=== PATIENT | male | born 1950 | race Caucasian/White ===

== ENCOUNTER 2019-10-02 08:02 | Inpatient (IN) | payer BC ==
[~2019-10-02] VITALS: Ht 177.8 cm; Wt 112.5 kg
[2019-10-02] VITALS (7 sets, daily range): BP systolic 123–157; BP diastolic 71–83
--- OUTSIDE RECORDS SUMMARY | 2019-10-02 08:05 | XMS REPORT ---
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 Allergies, Adverse Reactions, Alerts This patient has no known allergies or adverse reactions. Medications This patient has no known medications. Encounters Start Date/Time End Date/Time Encounter Type Admission Type Attending Clinicians [facility] [place] Facility Care Department Encounter ID 2019-03-28 13:54:34 Outpatient [facility] [id number] 2019-05-31 19:46:00 2019-05-31 19:46:00 Outpatient [facility] [id number]
[2019-10-02] MEDS ORDERED: AZITHROMYCIN 500MG/NS 250 ML 250 ML IV STA (08:31)
[2019-10-02] MEDS ORDERED: ACETAMINOPHEN 325 MG TAB PO STA (08:31)
[2019-10-02] MEDS ORDERED: SODIUM CHLORIDE 0.9% 1000ML 1,000 ML IV STA (08:31)
[2019-10-02] MEDS ORDERED: CEFTRIAXONE SOD 1 GM/NS 50 ML 50 ML IV ONE (08:45)
[2019-10-02 09:00] LABS: BASOPHILS % 0.5 % (0.0-1.0); EOSINOPHILS # (AUTO) 0.1 (0.0-0.4); EOSINOPHILS % 0.9 % (0.0-6.0); HEMATOCRIT 41.3 % (38.2-49.6); HEMOGLOBIN 14.3 g/dL (14.0-18.0); LYMPHOCYTES # (AUTO) 0.9 (1.0-3.2); LYMPHOCYTES % 16.8 % (18.0-39.1); MEAN CORPUSCULAR HEMOGLOBIN 29.1 pg (28-32); MEAN CORPUSCULAR HGB CONC 34.6 g/dL (31-35); MEAN CORPUSCULAR VOLUME 83.9 fL (81-99); MONOCYTES # (AUTO) 0.6 (0.2-0.8); MONOCYTES % 10.6 % (4.4-11.3); NEUTROPHILS % 70.8 % (38.7-80.0); PLATELET COUNT 194 x10e3/uL (140-360); RED BLOOD COUNT 4.92 x10e6/uL (4.3-5.7); RED CELL DISTRIBUTION WIDTH 12.4 % (11.7-14.4)
[2019-10-02 09:06] LABS: BILIRUBIN,URINE NEGATIVE (NEGATIVE); CLARITY,URINE CLEAR (CLEAR); COLOR,URINE YELLOW (YELLOW); LEUKOCYTE ESTERASE ,URINE NEGATIVE (NEGATIVE); NITRITE,URINE NEGATIVE (NEGATIVE); PROTEIN,URINE DIPSTICK 2+ (NEGATIVE); URINE UROBILINOGEN 1 mg/dL (0.2 - 1)
[2019-10-02 09:12] LABS: KETONES,URINE 3+ (NEGATIVE)
[2019-10-02 09:23] LABS: ALANINE AMINOTRANSFERASE 19 IU/L (0-55); ALBUMIN 3.3 g/dL (3.5-5.0); ALBUMIN/GLOBULIN RATIO 0.9 (0.8-2.0); ALKALINE PHOSPHATASE 44 IU/L (40-150); ANION GAP 13.2 mmol/L (8-16); BLOOD UREA NITROGEN 13 mg/dL (7-26); BUN/CREATININE RATIO 18 (6-25); CALCIUM 9.3 mg/dL (8.4-10.2); CARBON DIOXIDE 29 mmol/L (22-29); CHLORIDE 93 mmol/L (98-107); CREATININE, SERUM 0.71 mg/dL (0.72-1.25); EST GLOMERULAR FILTRATION RATE > 60 ML/MIN (60-); GLUCOSE 143 mg/dL (74-118); POTASSIUM 3.2 mmol/L (3.5-5.1); SODIUM 132 mmol/L (136-145)
--- NOTE | 2019-10-02 09:23 | Diagnostic Imaging Report ---
EXAMINATION: CHEST 2 VIEWS INDICATION: Sepsis COMPARISON: None FINDINGS: LINES/TUBES:EKG leads overlie the chest. LUNGS:The lungs are moderately inflated. There are patchy airspace opacities at the left lower lobe and lingula. No pulmonary edema. PLEURA:No pleural effusion or pneumothorax. MEDIASTINUM:The cardiomediastinal silhouette appears normal in size and shape. BONES/SOFT TISSUES:No acute osseous injury. Cervical spine fusion hardware. ABDOMEN:No free air under the diaphragm. IMPRESSION: Patchy opacities at the lingula and left lower lobe consistent with aspiration and/or pneumonia. RECOMMENDATIONS: Follow-up PA and lateral chest radiograph in 6-8 weeks to assess for resolution. Signed by: Jaison Miranda MD on 10/02/2019 9:20 AM
[2019-10-02 09:34] LABS: BACTERIA,URINE MANY /HPF; EPITHELIAL CELLS,URINE MODERATE /LPF; MUCUS,URINE MANY (RARE)
[2019-10-02] MEDS ORDERED: AMOX TR-K CLV1 EAC2 PO (09:51)
[2019-10-02] MEDS ORDERED: IRBESARTAN300 MG PO (09:51)
[2019-10-02] MEDS ORDERED: FINASTERIDE5 MG PO (09:51)
[2019-10-02] MEDS ORDERED: PIOGLITAZONE HC15 MG PO (09:51)
[2019-10-02] MEDS ORDERED: GUAIFENESIN-CO118 M1 PO (09:51)
[2019-10-02] MEDS ORDERED: AMLODIPINE BESY10 MG PO (09:51)
[2019-10-02] MEDS ORDERED: FLOMAX0.4 MG PO (09:51)
[2019-10-02] MEDS ORDERED: GLIMEPIRIDE1 MG PO (09:51)
[2019-10-02] MEDS ORDERED: HYDROCHLOROTH12.5 MG PO (09:51)
[2019-10-02] MEDS ORDERED: POTASSIUM CHLORIDE 20 MEQ TAB CR PO ONE (10:30)
--- NOTE | 2019-10-02 14:00 | NUR ---
RECD PT FROM ER VIA STRETCHER AAOX3,DENIES PAIN NO DISTRESS NTOED.O2 2L NC IN PLACE,SOB NOTED ON EXERTION ,HOB ELEVATED,CALL SINCLAIR IN REACH.LAC 18 GR IV
[2019-10-02] MEDS ORDERED: PNEUMOCOCCAL VACCINE POLYVALENT 23 MCG/0.5 ML VIAL IM SCH (14:30)
[2019-10-02] MEDS ORDERED: INFLUENZA VIRUS VAC SPLIT INJ 0.5 ML SYR IM SCH (14:30)
[2019-10-02] MEDS ORDERED: GUAIFENESIN PO PRN (15:00)
[2019-10-02] MEDS ORDERED: DEXTROSE 50% SYRINGE 50 ML IV PRN (15:00)
[2019-10-02] MEDS ORDERED: [UNRECOGNIZED DRUG - OTHER] PO PRN (15:00)
[2019-10-02] MEDS ORDERED: CODEINE PHOSPHATE PO PRN (15:00)
[2019-10-02] MEDS: CEFTRIAXONE SOD 1 GM/NS 50 ML 50 ML IV SCH (16:08)
[2019-10-02] MEDS: GUAIFENESIN/CODEINE 10 ML CUP PO PRN (16:09)
[2019-10-02] MEDS: TAMSULOSIN HCL 0.4 MG CAP PO SCH (16:17)
[2019-10-02] MEDS: AZITHROMYCIN 500MG/NS 250 ML 250 ML IV SCH (16:17)
--- NOTE | 2019-10-02 16:55 | NUR ---
PT C/O SOB PAGED DR DURÁN
--- NOTE | 2019-10-02 17:04 | NUR ---
PT TRANSPORTED TO CT SCAN VIA W/C
[2019-10-02] MEDS: INSULIN REGULAR, HUMAN 100 UNIT/1 ML 3ML VIAL SQ SCH ×2 (17:07→20:16)
[2019-10-02] MEDS ORDERED: ALBUTEROL/IPRATROPIUM 3 ML NEB NEB PRN (18:00)
--- NOTE | 2019-10-02 18:20 | Diagnostic Imaging Report ---
CT chest with enhancement CPT code: 09438 INDICATION: Pneumonia TECHNIQUE: 5 mm collimation axial images obtained from the thoracic inlet to the level of the diaphragm following uneventful administration of 100 cc of low osmolar, nonionic intravenous contrast. RADIATION DOSE: Total DLP: 591.44 mGy*cm Estimated effective dose: (DLP x 0.015 x size factor) mSv CTDIvol has been reviewed. It is below the limits set by the Radiation Protocol Committee (RPC). Dose reduction techniques used: Automated exposure control, adjustment of the mAs and/or kVp according to patient size, standardized low-dose protocol, and/or iterative reconstruction technique. Comparison: Chest x-ray 0901 hours. CHEST FINDINGS: Lymph nodes: No enlarged axillary or supraclavicular lymph nodes. Prevascular lymph nodes are prominent, with the largest lymph node measuring 2.2 x 1.0 cm. A left subcarinal lymph node measures 1.3 x 1.4 cm. A subcarinal lymph node measures 6 mm in short axis.. Thyroid: Visualized portions are normal. Mediastinum: The heart is normal in size. There is a tiny pericardial effusion. Coronary artery calcified as are present. There is mixing of contrast in the pulmonary artery trunk. No filling defects to suggest embolus. The esophagus is normal. Lungs: Right Lung: Diffuse groundglass airspace opacities in the upper lobe. There is diffuse bronchial wall thickening. Trace atelectasis over the diaphragm. Left Lung: Multifocal airspace opacities in the upper and lower lobes. There is diffuse bronchial wall thickening. Airways: Trace amount of dependently layering mucus in the left main bronchus. Pleura:Tiny left pleural effusion. No pneumothorax. ABDOMEN: A low attenuating lesion the upper pole of the left kidney measures 7 mm and is suggestive of a cyst. The spleen measures 14 cm in length with rounded contours. No abnormalities in the visualized portions of the liver, pancreas, or adrenal glands. Bones: Mild height loss of the T9 vertebral body without wedging. Spinal canal is widely patent. Air is fusion hardware in the lower cervical spine. No destructive lesions. Soft tissues: Unremarkable. IMPRESSION: 1. Multifocal airspace opacities, particularly in the left lung, suggestive of pneumonia. Prominent mediastinal and hilar lymph nodes are likely reactive. 2. Mild splenomegaly. Signed by: Dr. Dewey Velazquez MD on 10/02/2019 6:16 PM
--- NOTE | 2019-10-02 19:00 | NUR ---
patient received awake, alert, lying quietly in bed. patient c/o sob. 02/2l/nc in use. respiratory therapy notified for neb treatment. pm assessment complete. patient instructed to call for assistance when needed.
[2019-10-02] MEDS ORDERED: METHYLPREDNISOLONE SOD SUCC 40 MG/ML VIAL 1ML IV ONE (20:15)
--- NOTE | 2019-10-02 20:30 | NUR ---
here to see patient . patient to transfer to icu per orders. patient transfered to icu 193 via bed at this time. report given to Petey CRUMP
[2019-10-02] MEDS ORDERED: IOPAMIDOL 370 MG/ML 200 ML INFUS..BTL INJ ONE (20:38)
[2019-10-02] MEDS ORDERED: SODIUM CHLORIDE 0.9% 50ML 50 ML ONE (20:38)
[2019-10-02] MEDS: PIPER-TAZ 3.375 GM 50 ML IV SCH (20:51)
--- NOTE | 2019-10-02 21:00 | NUR ---
Dr. Potts called (data integration architect for [facility]) regarding pt in afib with no medication or anticoagulants. Ordered metoprolol and lovenox, see eMAR
[2019-10-02] MEDS: ACETAMINOPHEN 325 MG TAB PO PRN (21:32)
[2019-10-02] MEDS: ENOXAPARIN SODIUM INJ 100 MG/ML SYR SC SCH (21:32)
[2019-10-02] MEDS: METOPROLOL TARTRATE 25 MG TAB PO SCH (21:32)
[2019-10-02 22:06] LABS: ABG HCO3 28 mmol/L (23-28); ABG PCO2 39 mmHg (41-51); ABG PH 7.47 (7.31-7.41); ABG PO2 85 mmHg (80-105)
--- NOTE | 2019-10-02 23:12 | Consultation ---
DATE OF CONSULTATION: 10/02/2019 HISTORY OF PRESENT ILLNESS: Mr. Reggie Espinosa is a very pleasant gentleman, 68, who has history of hypertension. He has been sick for 10 days with fever, chills, cough. He went to see his physician, who was given him Augmentin seven days ago, but he was not getting any better. The patient woke up today and he is just not feeling well, short of breath and coughing was the same, so he was brought here. He is being admitted. The patient is currently lying in bed comfortably. PAST MEDICAL HISTORY: Hypertension. PAST SURGICAL HISTORY: Denies. ALLERGIES: ERYTHROMYCIN. SOCIAL HISTORY: There is no smoking, drug abuse, or alcohol abuse. About few months ago, he was traveling to visit family. The patient is currently lying in bed comfortably, family at the bedside. His was sick about a week ago beforehand and she got better. When they came back from the trip in the [place], there is no hunting on camping, they just say visiting family. LABORATORY DATA: Reviewed. Blood cultures negative. White count 5.59, hemoglobin 14. His sodium 132, potassium 3.2, and creatinine 0.71, glucose 171. Liver enzyme within normal limit. He had a chest x-ray, which showed patchy opacities in the left lower lobe consistent with aspiration pneumonia. PHYSICAL EXAMINATION: GENERAL: Currently alert, oriented, does not seem to be in acute distress. Continued to be short of breath. VITAL SIGNS: Stable. HEENT: Not icteric. NECK: Supple. CHEST: Few wheezing bilateral coarse. HEART: S1, S2. No murmurs. ABDOMEN: Soft. Bowel sounds present. No tenderness. EXTREMITIES: No rashes. MEDICATIONS: Currently on azithromycin, ceftriaxone. IMPRESSION: Community-acquired pneumonia and concerned about aspiration. Agree with blood cultures, urine cultures. Agree with sputum for cultures, urine Legionella antigen. He seemed to tolerate Rocephin and azithromycin. We will reassess in the morning. Obtain O2 saturation. Obtain HIV. Obtain a CT chest and reassess. MD LONNEI Boateng/HAYES /[id number]
[2019-10-03] VITALS (21 sets, daily range): BP systolic 105–166; BP diastolic 69–98
[2019-10-03] MEDS: ALBUTEROL/IPRATROPIUM 3 ML NEB NEB SCH ×4 (01:00→19:45)
--- NOTE | 2019-10-03 01:33 | Consultation ---
DATE OF CONSULTATION: Pulmonary Consultation REASON FOR CONSULT: Shortness of breath, wheezing, cough, pneumonia. HISTORY OF PRESENT ILLNESS: Mr. Paredes is a 68-year-old male, who started having shortness of breath and coughing for last few weeks. He saw his primary care physician and was prescribed amoxicillin, this past Wednesday that is around three days ago symptoms, started having getting progressively worse and shortness of breath, who was on exertion and even on rest, associated with cough, with fever and chills, so he saw the primary care physician again and an x-ray was advised to be done today, but however today he felt worse shortness of breath, fever and chills, so shortness of breath, fever and chills got worse. It was constant. Severe and was limiting activity, so he decided to come to the emergency room. In the emergency room, the patient underwent CT chest without contrast, which showed multifocal pneumonia. On left side, the patient was started on IV antibiotics and admitted to the floor. Currently, he is tachypneic, short of breath and anxious with chills. REVIEW OF SYSTEMS: GENERAL: Fever, chills. HEAD: Denies any head trauma. ENT: Denies any earache. CVS: Denies any chest pain. RESPIRATORY: Shortness of breath. GI: Denies any nausea, vomiting. The rest of the review of systems are negative except as in HPI. PAST MEDICAL HISTORY: Hypertension. PAST SURGICAL HISTORY: None. FAMILY AND SOCIAL HISTORY: He does not smoke, does not drink. PHYSICAL EXAMINATION: VITAL SIGNS: Temperature 98.1, pulse of 90, blood pressure 126/73, respiratory rate is 26 to 28 per minute. He was afebrile. HEENT: Head atraumatic, normocephalic. NECK: Supple. CHEST: Wheezing bilaterally. HEART: S1, S2 audible. ABDOMEN: Soft. EXTREMITIES: No pedal edema. NEUROLOGIC: Awake and alert. LABORATORY DATA: Serology of influenza is negative. Sodium 132, potassium 3.2. White count of 5.5, hemoglobin 14.3. Chest CT reviewed images multilobar infiltrate on the left side. ASSESSMENT: Mr. Paredes is a 68-year-old male with multilobar pneumonia and respiratory failure. PLAN: 1. I will check an ABG. Transfer the patient to ICU. Continue the patient on BiPAP with oxygen. He has a history of obstructive sleep apnea, however he is more tachypneic, will need BiPAP with oxygen. 2. Start the patient on IV Zosyn. Continue the patient on azithromycin. Discussed with the patient's at bedside in detail. Critical care time spent 50 minutes. MD MAXINE Guidry/HAYES /[id number]
[2019-10-03] MEDS: PIPER-TAZ 3.375 GM 50 ML IV SCH (02:20)
[2019-10-03] MEDS: METOPROLOL TARTRATE 25 MG TAB PO SCH ×4 (03:00→20:24)
[2019-10-03 05:04] LABS: BASOPHILS % 0.3 % (0.0-1.0); EOSINOPHILS % 0.2 % (0.0-6.0); HEMATOCRIT 39.9 % (38.2-49.6); HEMOGLOBIN 13.3 g/dL (14.0-18.0); LYMPHOCYTES # (AUTO) 0.8 (1.0-3.2); LYMPHOCYTES % 13.8 % (18.0-39.1); MEAN CORPUSCULAR HEMOGLOBIN 28.7 pg (28-32); MEAN CORPUSCULAR HGB CONC 33.3 g/dL (31-35); MEAN CORPUSCULAR VOLUME 86.2 fL (81-99); MONOCYTES # (AUTO) 0.3 (0.2-0.8); MONOCYTES % 4.3 % (4.4-11.3); NEUTROPHILS # (AUTO) 4.9 (2.1-6.9); NEUTROPHILS % 80.7 % (38.7-80.0); PLATELET COUNT 201 x10e3/uL (140-360); RED BLOOD COUNT 4.63 x10e6/uL (4.3-5.7); RED CELL DISTRIBUTION WIDTH 12.4 % (11.7-14.4)
[2019-10-03 05:22] LABS: ANION GAP 14.7 mmol/L (8-16); BLOOD UREA NITROGEN 12 mg/dL (7-26); BUN/CREATININE RATIO 17 (6-25); CALCIUM 8.9 mg/dL (8.4-10.2); CARBON DIOXIDE 27 mmol/L (22-29); CHLORIDE 99 mmol/L (98-107); CREATININE, SERUM 0.72 mg/dL (0.72-1.25); EST GLOMERULAR FILTRATION RATE > 60 ML/MIN (60-); GLUCOSE 185 mg/dL (74-118); POTASSIUM 3.7 mmol/L (3.5-5.1); SODIUM 137 mmol/L (136-145)
[2019-10-03] MEDS ORDERED: PIPER-TAZ 3.375 GM 50 ML IV SCH (08:00)
[2019-10-03] MEDS: INSULIN REGULAR, HUMAN 100 UNIT/1 ML 3ML VIAL SQ SCH ×4 (08:00→20:24)
[2019-10-03] MEDS ORDERED: NON-FORMULARY MEDICATION (Hydrochlorothiazide 12.5 MG) PO SCH (09:00)
[2019-10-03] MEDS ORDERED: NON-FORMULARY MEDICATION (Irbesartan 300 MG) PO SCH (09:00)
[2019-10-03] MEDS: ASPIRIN 81 MG ENTERIC COATED PO SCH (09:58)
[2019-10-03] MEDS: HYDROCHLOROTHIAZIDE 25 MG TAB PO SCH (09:59)
[2019-10-03] MEDS: IRBESARTAN 150 MG TAB PO SCH (09:59)
[2019-10-03] MEDS: AMLODIPINE BESYLATE 10 MG TAB PO SCH (10:00)
[2019-10-03] MEDS: TAMSULOSIN HCL 0.4 MG CAP PO SCH ×2 (10:00→17:32)
[2019-10-03] MEDS: FINASTERIDE 5 MG TAB PO SCH (10:00)
[2019-10-03] MEDS: ENOXAPARIN SODIUM INJ 100 MG/ML SYR SC SCH ×2 (10:00→20:24)
--- NOTE | 2019-10-03 11:26 | History and Physical ---
HISTORY OF PRESENT ILLNESS: Mr. Paredes is a 68-year-old man with history of diabetes, hypertension, BPH, who 2 weeks ago started complaining of cough and not feeling very good. He went to see his primary care physician. He was given apparently ampicillin, amoxicillin, and some cough medication. He did not improve, went to see his PCP again on Wednesday, but because he did not improve, he started getting shortness of breath, he decided to come to the emergency room. PAST MEDICAL HISTORY: He has diabetes, hypertension, hyperlipidemia, and BPH. SOCIAL HISTORY: He drinks occasionally. He does not smoke. He lives at home with his . PAST SURGICAL HISTORY: He had appendectomy and back surgery. ALLERGIES: APPARENTLY, HE IS ALLERGIC TO ERYTHROMYCIN. PHYSICAL EXAMINATION: GENERAL: Today, the patient is awake and alert. He is feeling better. VITAL SIGNS: Temperature is 97.9, blood pressure 122/82. HEART: Regular rate. LUNGS: Bilateral wheezing. ABDOMEN: Distended and soft. EXTREMITIES: Lower extremity, no edema. No erythema. LABORATORY DATA: On the blood work, white count is 6.07, hemoglobin 13.3, hematocrit 39.9. Blood gas shows a pH of 7.47 with oxygen of 85, and CO2 39, potassium 3.7, creatinine is 0.72, glucose is 182. Influenza test is negative. Legionella is pending and group B streptococcus came back negative. Sputum cultures, urine cultures, and blood cultures are pending. He had a chest x-ray done yesterday that showed patchy opacities at the lingula on the left lower consistent with aspiration and/or pneumonia. Chest CT show multifocal airspace opacities, particularly on the left lung suggestive of pneumonia. Prominent mediastinal and hilar lymph nodes and mild splenomegaly. ASSESSMENT: 1. Acute hypoxic respiratory failure, on BiPAP, as tolerated. 2. Community acquired multilobar pneumonia. 3. Diabetes type 2. 4. Hypertension. 5. Benign prostatic hypertrophy. PLAN: At present time is the patient was admitted yesterday to the floor. He started complaining of shortness of breath and wheezing, so he was transferred to ICU and started on BiPAP. We are going to continue IV antibiotics. We are going to continue on neb treatments. Rocephin was switched to Zosyn. So, the patient is going to be on Zosyn and azithromycin. Continue home medications. ADA diet and needs a sliding scale with insulin. The prognosis remains guarded. I spent more than 50 minutes examining the patient, reviewing the lab results, x-rays, and discussing the plan of care with the patient and at bedside. All questions were answered to satisfaction. MD ZACKARY Schmitz/HAYES /[id number]
[2019-10-03] MEDS: AZITHROMYCIN 500MG/NS 250 ML 250 ML IV SCH (15:50)
[2019-10-03] MEDS: CEFTRIAXONE SOD 1 GM/NS 50 ML 50 ML IV SCH (15:50)
--- NOTE | 2019-10-03 20:50 | Consultation ---
DATE OF CONSULTATION: 10/03/2019 Cardiology Consultation REQUESTING PHYSICIAN: Helena Bruce MD. REASON FOR CONSULTATION: Atrial fibrillation. HISTORY OF PRESENT ILLNESS: This is a 68-year-old male with history of hypertension, diabetes mellitus, who presented to [facility] with complaints of shortness of breath for the last beginning two weeks prior. He reports his shortness of breath progressively worsened such that he eventually presented to the ER. He states that he had noticed symptoms suggestive of orthopnea and PND one week prior to presentation. He otherwise denies any chest pain, palpitations, or lower extremity edema. He was found to have multifocal airspace opacities particularly in the left lung suggestive of pneumonia. He was admitted for further care. He was admitted for further evaluation and management. The patient was noted to develop atrial fibrillation overnight for which Cardiology is consulted for management. REVIEW OF SYSTEMS: As per HPI. PAST MEDICAL HISTORY: 1. Hypertension. 2. Diabetes mellitus. PAST SURGICAL HISTORY: 1. Diskectomy. 2. Appendectomy. ALLERGIES: ERYTHROMYCIN. MEDICATIONS: Please see medication list. SOCIAL HISTORY: Denies tobacco or illicit drugs. Does drink alcohol occasionally. FAMILY HISTORY: Pertinent for father with four-vessel CABG. PHYSICAL EXAMINATION: VITAL SIGNS: Temperature 98 degrees, pulse 100, respiratory rate 20, blood pressure 120/78, oxygen saturation 94% on BiPAP. GENERAL: Obese gentleman in no acute distress. Well developed, well nourished. HEENT: Normocephalic, atraumatic. Pupils equal. No scleral icterus. NECK: Supple. No thyromegaly or cervical lymphadenopathy. No carotid bruits. LUNGS: Clear to auscultation bilaterally. No wheeze or crackles. CARDIOVASCULAR: Normal rate, irregularly irregular. No murmur. Normal S1, S2. ABDOMEN: Soft, nontender. EXTREMITIES: No edema. NEUROLOGIC: Nonfocal exam. LABORATORY DATA: WBC 6.07, hemoglobin 13.3, hematocrit 39.9 and platelets 201. Sodium 137, potassium 3.7, chloride 99, CO2 of 27, BUN 12, creatinine 0.72. IMAGING: EKG, atrial fibrillation, low-voltage QRS, nonspecific T-wave abnormality, probably digitalis effect. IMPRESSION: 1. Pneumonia. 2. Atrial fibrillation, rate controlled. 3. Hypertension. 4. Diabetes mellitus. RECOMMENDATIONS: Continue metoprolol for rate control as heart rate is somewhat borderline, increased to 50 mg p.o. q.6 hours. Continue enoxaparin for CVA prophylaxis. Discussed warfarin versus DOACs for anticoagulation and indication for anticoagulation for CVA prophylaxis. Recommend initiation of Eliquis 5 mg p.o. b.i.d. upon discharge or if no further procedures are planned. Obtain echocardiogram. Discussed natural history of atrial fibrillation and plan for SHIRLEY cardioversion once pneumonia has resolved. In the meantime, continue supportive care, IV antibiotics per Infectious Disease. Check BNP. Thank you for this consult. We will continue to follow. Coretta De La Torre MD ABS/MODL /[id number]
[2019-10-04] VITALS (25 sets, daily range): BP systolic 104–137; BP diastolic 64–94
[2019-10-04] MEDS: ALBUTEROL/IPRATROPIUM 3 ML NEB NEB SCH ×5 (00:15→23:40)
[2019-10-04] MEDS: GUAIFENESIN/CODEINE 10 ML CUP PO PRN ×2 (03:20→21:00)
[2019-10-04] MEDS: METOPROLOL TARTRATE 25 MG TAB PO SCH ×4 (03:23→20:20)
[2019-10-04] MEDS: INSULIN REGULAR, HUMAN 100 UNIT/1 ML 3ML VIAL SQ SCH ×4 (07:46→20:19)
[2019-10-04] MEDS: FINASTERIDE 5 MG TAB PO SCH (08:02)
[2019-10-04] MEDS: AMLODIPINE BESYLATE 10 MG TAB PO SCH (08:02)
[2019-10-04] MEDS: TAMSULOSIN HCL 0.4 MG CAP PO SCH ×2 (08:02→16:07)
[2019-10-04] MEDS: ENOXAPARIN SODIUM INJ 100 MG/ML SYR SC SCH ×2 (08:02→20:17)
[2019-10-04] MEDS: ASPIRIN 81 MG ENTERIC COATED PO SCH (08:02)
[2019-10-04] MEDS: HYDROCHLOROTHIAZIDE 25 MG TAB PO SCH (08:05)
[2019-10-04] MEDS: IRBESARTAN 150 MG TAB PO SCH (08:05)
--- NOTE | 2019-10-04 10:20 | Progress Note ---
DATE: 10/04/2019 SUBJECTIVE: Mr. Paredes is a 68-year-old man with history of diabetes, hypertension, BPH, came to the emergency room complaining of cough and shortness of breath. After failing a treatment with p.o. antibiotics as an outpatient. He was found to have multilobar pneumonia. He was admitted to the floor, developed shortness of breath. He had to be transferred to the ICU. PHYSICAL EXAMINATION: GENERAL: At the present, on physical examination, he is awake and alert. He is feeling better. He still is short of breath. VITAL SIGNS: Temperature is 96.7, blood pressure is 123/67, O2 saturation 95%. HEART: Irregularly irregular. LUNGS: Left base crackles. ABDOMEN: Distended and soft. LABORATORY DATA: On the blood work, white count is 6.07, hemoglobin 13.3, hematocrit 39.9, blood sugar was 164. Influenza test is negative. Strep negative. We are waiting for Legionella. Throat culture shows usual respiratory brian. Urine culture, no growth. Blood culture so far negative after [address] shows multifocal airspace opacities, particularly in the left lung suggestive of pneumonia. ASSESSMENT: 1. Acute hypoxic respiratory failure, on BiPAP as needed. 2. Community-acquired multilobar pneumonia. 3. Diabetes type 2 with hyperglycemia. 4. Hypertension. 5. Benign prostatic hyperplasia. 6. Atrial fibrillation with controlled heart rate. PLAN: At the present time is to continue to monitor respiratory status. BiPAP as needed. Continue IV antibiotics. ADA diet. Sliding scale with insulin. The patient was also seen by voip network technician. He is going to need anticoagulation upon discharge with Eliquis 5 mg twice a day and further workup as an outpatient. Metoprolol was increased to 50 mg every 6 hours. All this was discussed in extension with the patient and son at bedside. All questions were answered to satisfaction. I spent more than 35 minutes examining the patient, reviewing overnight events, lab results, x-ray, and discussing plan of care with the patient. MD ZACKARY Schmitz/HAYES /[id number]
[2019-10-04] MEDS: AZITHROMYCIN 500MG/NS 250 ML 250 ML IV SCH (14:34)
[2019-10-04] MEDS: CEFTRIAXONE SOD 1 GM/NS 50 ML 50 ML IV SCH (14:35)
--- NOTE | 2019-10-04 18:14 | NUR ---
Patient complains that he was not syncing up with bipap at night. Pt and son states pt uses cpap at home. Patient also having trouble coughing up thick secretions. Sputum sample collected. Dr. Argueta gave orders for CPAP prn and mucomyst. Cardiology planning cardioversion and SHIRLEY tomorrow. Patient to be NPO at midnight. Consent for procedure signed and placed in chart. Patient does not appear to be in any distress at this time.
--- NOTE | 2019-10-04 19:37 | Progress Note ---
DATE: 10/04/2019 Cardiology Progress Note SUBJECTIVE: No major events overnight. OBJECTIVE: VITAL SIGNS: Temperature afebrile, pulse 86, respiratory rate 22, blood pressure 116/82, saturating 96% on 2 L nasal cannula. GENERAL: Obese white man, in no acute distress. CARDIOVASCULAR: Regular rate, irregular rhythm. No murmurs, rubs, or gallops. LUNGS: Clear to auscultation bilaterally. ABDOMEN: Obese, soft, nontender, nondistended. NEURO AND PSYCH: Alert and oriented to person, place, and time. Normal affect. INPATIENT MEDICATIONS: Reviewed. LABORATORY DATA: Reviewed. TELEMETRY DATA: Reviewed. It shows rate-controlled atrial fibrillation. ASSESSMENT: 1. Pneumonia. 2. Atrial fibrillation, new onset, rate controlled. 3. Hypertension. 4. Diabetes. PLAN: Plan for SHIRLEY cardioversion likely tomorrow. Discussed with patient and his . Continue full-dose Lovenox for now. We will transition to oral anticoagulation prior to discharge. Thank you for this consult. We will continue to follow. MD LUDWIG Wick/HAYES /[id number]
[2019-10-04] MEDS: ACETYLCYSTEINE 20% INHAL SOLN 30 ML VIAL INH SCH (23:00)
[2019-10-05] VITALS (23 sets, daily range): BP systolic 104–142; BP diastolic 67–109
[2019-10-05] MEDS: GUAIFENESIN/CODEINE 10 ML CUP PO PRN ×2 (02:06→17:56)
[2019-10-05] MEDS: METOPROLOL TARTRATE 25 MG TAB PO SCH ×3 (03:00→15:00)
[2019-10-05 05:19] LABS: BASOPHILS # (AUTO) 0.1 (0.0-0.1); EOSINOPHILS # (AUTO) 0.3 (0.0-0.4); EOSINOPHILS % 5.6 % (0.0-6.0); HEMATOCRIT 36.7 % (38.2-49.6); HEMOGLOBIN 12.3 g/dL (14.0-18.0); LYMPHOCYTES # (AUTO) 1.6 (1.0-3.2); LYMPHOCYTES % 31.1 % (18.0-39.1); MEAN CORPUSCULAR HEMOGLOBIN 28.9 pg (28-32); MEAN CORPUSCULAR HGB CONC 33.5 g/dL (31-35); MEAN CORPUSCULAR VOLUME 86.4 fL (81-99); MONOCYTES # (AUTO) 0.7 (0.2-0.8); MONOCYTES % 13.8 % (4.4-11.3); NEUTROPHILS # (AUTO) 2.4 (2.1-6.9); NEUTROPHILS % 47.7 % (38.7-80.0); PLATELET COUNT 242 x10e3/uL (140-360); RED BLOOD COUNT 4.25 x10e6/uL (4.3-5.7); RED CELL DISTRIBUTION WIDTH 12.6 % (11.7-14.4)
[2019-10-05 05:51] LABS: ANION GAP 13.4 mmol/L (8-16); BLOOD UREA NITROGEN 8 mg/dL (7-26); BUN/CREATININE RATIO 11 (6-25); CALCIUM 8.7 mg/dL (8.4-10.2); CARBON DIOXIDE 30 mmol/L (22-29); CHLORIDE 99 mmol/L (98-107); EST GLOMERULAR FILTRATION RATE > 60 ML/MIN (60-); GLUCOSE 143 mg/dL (74-118); POTASSIUM 3.4 mmol/L (3.5-5.1); SODIUM 139 mmol/L (136-145)
[2019-10-05] MEDS: ACETYLCYSTEINE 20% INHAL SOLN 30 ML VIAL INH SCH ×3 (07:05→23:02)
[2019-10-05] MEDS: ALBUTEROL/IPRATROPIUM 3 ML NEB NEB SCH (07:05)
[2019-10-05] MEDS: INSULIN REGULAR, HUMAN 100 UNIT/1 ML 3ML VIAL SQ SCH ×4 (07:30→20:48)
[2019-10-05] MEDS: ENOXAPARIN SODIUM INJ 100 MG/ML SYR SC SCH (08:29)
[2019-10-05] MEDS ORDERED: POTASSIUM CHLORIDE 20MEQ/100ML 100 ML IV ONE (09:15)
--- NOTE | 2019-10-05 11:10 | Progress Note ---
DATE: 10/05/2019 SUBJECTIVE: Mr. Paredes is a 68-year-old man with history of diabetes, hypertension, BPH, came to the emergency room complaining of cough and shortness of breath. He failed a treatment with p.o. antibiotics as an outpatient. He was found to have multilobar pneumonia. He was started on IV antibiotics and neb treatments, had to be transferred to ICU due to hypoxemia and shortness of breath. While in the hospital, the patient developed new onset atrial fibrillation and has been seen by regulatory product manager. He is supposed to go for cardioversion today. PHYSICAL EXAMINATION: GENERAL: He is awake and alert. He is feeling much better. VITAL SIGNS: Temperature is 97.9 and blood pressure 112/69. HEART: Irregularly irregular. LUNGS: Have bilateral crackles, especially on the left base. ABDOMEN: Distended and soft. LABORATORY DATA: On the blood work, white count is 5.01, hemoglobin is 12.3, and hematocrit 36.7. Potassium 3.4, creatinine 0.73, and glucose 143. Influenza test negative. Legionella is negative and strep culture negative. Blood culture so far negative as well as urine and throat, sputum culture incubation required. Chest CT showed multifocal airspace opacities, this is particularly in the left lung. ASSESSMENT: 1. Acute hypoxic respiratory failure, on BiPAP as needed, improving. 2. Community-acquired multilobar pneumonia. 3. Diabetes type 2 with hyperglycemia. 4. New onset atrial fibrillation. 5. Hypertension. 6. Benign prostatic hyperplasia. PLAN: At the present time is to continue to monitor respiratory status. ADA diet. Sliding scale. Continue IV antibiotics. The patient was seen by regulatory product manager and he is going to go today for SHIRLEY cardioversion. We are going to continue Lovenox for now and the patient will be discharged home on oral anticoagulation. All this was discussed with the patient and at bedside. All questions were answered to satisfaction. I spent more than 35 minutes examining the patient, reviewing lab results, overnight events, x-rays and discussing plan of care with the and the patient at bedside. MD ZACKARY Schmitz/HAYES /[id number]
[2019-10-05] MEDS ORDERED: SODIUM CHLORIDE 0.9% 1000ML 1,000 ML ONE (11:45)
[2019-10-05] MEDS ORDERED: BENZOCAINE 20% SPR 60 ML CAN ONE (11:45)
[2019-10-05] MEDS ORDERED: POTASSIUM CHLORIDE 10MEQ EA PO ONE ×2 (12:15→14:15)
--- NOTE | 2019-10-05 13:00 | NUR ---
1205 - pt received for SHIRLEY/cardioversion, placed on bedside monitoring. pt positioned for procedure. IV site patent to LAC 18g , VS stable, afib rhythm 1215 - all responsible staff present, Timeout performed 1208 - hurricaine spray (spray 1) to oral cavity by Dr Potts 1216 - bite block positioned and SHIRLEY probe passed w/ anesthesia Laryngoscope assist 1236 - agitated saline injected for bubble study 1238 - SHIRLEY probe removed , no gross trauma or distress observed 1240 - pt synchronized cardioverted at 200 joules,single shock to sinus rhythm 1248 - pt taken to ICU for further recovery. bedside report provided by anesthesia, no gross oral trauma observed
[2019-10-05] MEDS: LEVALBUTEROL HCL SOLN NEBU 1.25 MG/3 ML NEB INH PRN (13:45)
[2019-10-05] MEDS: ASPIRIN 81 MG ENTERIC COATED PO SCH (13:57)
[2019-10-05] MEDS: IRBESARTAN 150 MG TAB PO SCH (13:58)
[2019-10-05] MEDS: TAMSULOSIN HCL 0.4 MG CAP PO SCH ×2 (13:58→16:19)
[2019-10-05] MEDS: FINASTERIDE 5 MG TAB PO SCH (13:59)
[2019-10-05] MEDS: HYDROCHLOROTHIAZIDE 25 MG TAB PO SCH (13:59)
[2019-10-05] MEDS: AMLODIPINE BESYLATE 10 MG TAB PO SCH (13:59)
[2019-10-05] MEDS: AZITHROMYCIN 500MG/NS 250 ML 250 ML IV SCH (14:14)
[2019-10-05] MEDS ORDERED: POTASSIUM CHLORIDE 20 MEQ TAB CR PO ONE (14:15)
[2019-10-05] MEDS: CEFTRIAXONE SOD 1 GM/NS 50 ML 50 ML IV SCH (15:22)
--- NOTE | 2019-10-05 18:01 | NUR ---
Patient NPO for procedure this morning. Morning meds held per Dr. Radha Potts. Potassium 3.[address] Argueta aware and ordered IV potassium. Patient only tolerated half of medication ordered, stating IV was burning from medication. Dr. Argueta informed and ordered po potassium when pt returns from procedure. Patient went for Cardioversion and SHIRLEY this afternoon. Patient converted into NSR. Orders given to resume diet 2 hrs after procedure. Patient having strong productive cough today. Per Dr. Argueta, Dr. Potts and Dr. Bruce patient ok to transfer to medical surgical floor with telemetry. Patient does not appear to be in any s/s of distress at this time.
[2019-10-05] MEDS ORDERED: PROPOFOL IV EMULSION 10 MG/ML 20 ML VIAL ONE (18:26)
[2019-10-05] MEDS ORDERED: LIDOCAINE HCL 2% LOCAL INJ 5 ML SDV VIAL INJ ONE (18:26)
[2019-10-05] MEDS ORDERED: FENTANYL CITRATE/PF 100MCG/2 ML INJ ONE (18:46)
[2019-10-05] MEDS ORDERED: MIDAZOLAM HCL 2 MG/2 ML VIAL ONE (18:46)
[2019-10-05] MEDS: APIXABAN 5 MG TABLET PO SCH (19:10)
[2019-10-05] MEDS ORDERED: CHLORASEPTIC SPRAY 177 ML BTL MM PRN (19:30)
[2019-10-05] MEDS: ACETAMINOPHEN 325 MG TAB PO PRN (19:51)
--- NOTE | 2019-10-05 20:23 | Progress Note ---
DATE: 10/05/2019 Cardiology Progress Note SUBJECTIVE: He had a SHIRLEY cardioversion done today, difficult intubation due to large tongue and thick neck. The patient is having some sore throat, however, otherwise feeling better. OBJECTIVE: VITAL SIGNS: Temperature afebrile, pulse 87, respiratory rate 19, blood pressure 104/94, and saturating 100% on 2 L nasal cannula. GENERAL: man, well developed, well nourished, obese, no acute distress. CARDIOVASCULAR: Regular rate and rhythm. No murmurs, rubs, or gallops. LUNGS: Clear to auscultation bilaterally. ABDOMEN: Soft, nontender, nondistended. NEURO AND PSYCH: Alert and oriented to person, place, and time. Normal affect. INPATIENT MEDICATIONS: Reviewed. LABORATORY DATA: Reviewed. TELEMETRY DATA: Reviewed, shows normal sinus rhythm now, cardioverted from atrial fibrillation. ASSESSMENT AND PLAN: 1. Pneumonia. 2. Atrial fibrillation, new onset, status post cardioversion. 3. Hypertension. 4. Diabetes. PLAN: He had a SHIRLEY cardioversion today. We will change the Lovenox over to Eliquis, starting tomorrow 5 mg b.i.d. The patient is okay to be discharged from cardiovascular standpoint on his current medical regimen including metoprolol 50 mg b.i.d. He will follow up in the office for further treatment and care of his cardiac issues 1 to 2 weeks post discharge. Thank you for this consult. We will continue to follow. MD LUDWIG Wick/HAYES /[id number]
[2019-10-06] VITALS: BP 116/67
[2019-10-06 04:00] VITALS: BP 133/77
[2019-10-06] MEDS: APIXABAN 5 MG TABLET PO SCH (06:48)
[2019-10-06 08:03] VITALS: BP 149/86
[2019-10-06] MEDS: INSULIN REGULAR, HUMAN 100 UNIT/1 ML 3ML VIAL SQ SCH ×3 (08:07→16:30)
[2019-10-06] MEDS: TAMSULOSIN HCL 0.4 MG CAP PO SCH (08:14)
[2019-10-06] MEDS: ASPIRIN 81 MG ENTERIC COATED PO SCH (08:14)
[2019-10-06] MEDS: FINASTERIDE 5 MG TAB PO SCH (08:14)
[2019-10-06] MEDS: HYDROCHLOROTHIAZIDE 25 MG TAB PO SCH (08:14)
[2019-10-06] MEDS: IRBESARTAN 150 MG TAB PO SCH (08:14)
[2019-10-06] MEDS: ACETYLCYSTEINE 20% INHAL SOLN 30 ML VIAL INH SCH (08:15)
[2019-10-06] MEDS: LEVALBUTEROL HCL SOLN NEBU 1.25 MG/3 ML NEB INH PRN (08:15)
[2019-10-06 08:58] VITALS: BP 149/86
[2019-10-06] MEDS ORDERED: METOPROLOL TARTRATE 25 MG TAB PO SCH (09:00)
[2019-10-06] MEDS ORDERED: METOPROLOL TARTRATE 50 MG TAB PO SCH (09:00)
--- NOTE | 2019-10-06 12:07 | Progress Note ---
DATE: 10/06/2019 SUBJECTIVE: Mr. Paredes is a 68-year-old male with history of diabetes, hypertension, BPH, came to the emergency room with shortness of breath and he was found to have pneumonia. He failed p.o. antibiotics as an outpatient, who was started on IV antibiotics. He developed new onset atrial fibrillation with rapid ventricular rate. He went for cardioversion yesterday. He had a SHIRLEY with cardioversion. He did fine. PHYSICAL EXAMINATION: GENERAL: Today, he is awake and alert. VITAL SIGNS: Temperature is 96.7, blood pressure is 149/86. HEART: Regular rate. LUNGS: He still has some crackles on the left base. ABDOMEN: Distended and soft. LABORATORY DATA: On the blood work, white count 5.01, hemoglobin 12.3, hematocrit 36.7. Glucose is 129 and creatinine 0.70. Blood cultures negative. Urine culture negative. Throat culture was negative. ASSESSMENT: 1. Acute hypoxic respiratory failure, resolving. 2. Community-acquired multilobar pneumonia. 3. Diabetes type 2 with hyperglycemia. 4. New onset atrial fibrillation, status post cardioversion. 5. Hypertension. 6. Benign prostatic hyperplasia. PLAN: At present time is to switch Lovenox to Eliquis 5 mg twice a day. We put the patient on metoprolol 50 mg twice a day. We are going to continue ADA diet. Discuss with Infectious Disease and Pulmonary doctor if the patient can be switched to p.o. antibiotics and discharge today or may be tomorrow depending if he is doing better. All this was discussed with the patient at bedside. All questions were answered to satisfaction. I spent more than 35 minutes examining the patient, reviewing the lab results, overnight event, x-rays, and discussing plan of care with him. MD ZACKARY Schmitz/HAYES /[id number]
[2019-10-06] MEDS: CEFTRIAXONE SOD 1 GM/NS 50 ML 50 ML IV SCH (15:00)
[2019-10-06] MEDS ORDERED: METOPROLOL TART50 MG PO (15:41)
[2019-10-06] MEDS ORDERED: ELIQUIS2.5 MG PO (15:42)
[2019-10-06] MEDS ORDERED: AUGMENTIN 875-1 EACH PO (15:44)
[2019-10-06 16:00] VITALS: BP 137/90
== END 2019-10-06 16:13 | disposition home or self-care (01) | DRG 193 ==
LOC: ER 08:02 → ERHOLD 10:34 → MED/SURG3 13:38 → ICU 20:32 → OBSVTOIN 10-03 08:36
PROVIDERS: ADMIT Internal Medicine; ATTEND Internal Medicine
PROC: 5A09357 Assistance with Respiratory Ventilation, Less than 24 Consecutive Hours, Continuous Positive Airway Pressure (ICD-10-PCS; principal; 2019-10-03)
PROC: 5A2204Z Restoration of Cardiac Rhythm, Single (ICD-10-PCS; 2019-10-05)
DX: J18.1 Lobar pneumonia, unspecified organism (principal); J96.01 Acute respiratory failure with hypoxia; I10 Essential (primary) hypertension; Z85.828 Personal history of other malignant neoplasm of skin; G25.0 Essential tremor; N40.0 Benign prostatic hyperplasia without lower urinary tract symptoms; E78.5 Hyperlipidemia, unspecified; Z88.8 Allergy status to other drugs, medicaments and biological substances; G47.33 Obstructive sleep apnea (adult) (pediatric); I48.91 Unspecified atrial fibrillation; E11.65 Type 2 diabetes mellitus with hyperglycemia; E66.9 Obesity, unspecified; Z68.35 Body mass index [BMI] 35.0-35.9, adult; J02.9 Acute pharyngitis, unspecified; Z79.84 Long term (current) use of oral hypoglycemic drugs
CPT/HCPCS: 36415; 36600; 71046; 71260; 80048; 80053; 81001; 82805; 82948; 83518; 83605; 83880; 85025; 87040; 87070; 87086; 87205; 87400; 87449; 90732; 93005; 93306; 93307; 93312; 93325; 94640; 94660; 96372; 99284; G0378; J0456; J0696; J1650; J1817; J2001; J2250; J2543; J2920; J3010; J3480; J7030; Q9967

== ENCOUNTER → 2019-10-23 | Outpatient (CLI) | payer BC ==
[~2019-10-23] MED LIST: AMLODIPINE BESY10 MG PO; AMOX TR-K CLV1 EAC2 PO; AUGMENTIN 875-1 EACH PO; ELIQUIS2.5 MG PO; FINASTERIDE5 MG PO; FLOMAX0.4 MG PO; GLIMEPIRIDE1 MG PO; GUAIFENESIN-CO118 M1 PO; HYDROCHLOROTH12.5 MG PO; IOPAMIDOL 370 MG/ML 200 ML INFUS..BTL INJ ONE; IRBESARTAN300 MG PO; METOPROLOL TART50 MG PO; PIOGLITAZONE HC15 MG PO; SODIUM CHLORIDE 0.9% 100 ML ONE
[2019-10-23 09:12] LABS: BLOOD UREA NITROGEN 11 mg/dL (7-26); BUN/CREATININE RATIO 14 (6-25); EST GLOMERULAR FILTRATION RATE > 60 ML/MIN (60-)
--- NOTE | 2019-10-23 14:06 | Diagnostic Imaging Report ---
CTA BRAIN HISTORY: Cerebral aneurysm COMPARISON: None. TECHNIQUE: CTA of the head was performed with intravenous iodine based contrast. Coronal, sagittal, and 3-D reformations were created. One or more of the following dose reduction techniques were used: Automated exposure control, adjustment of the mA and/or kV according to patient size, and/or utilization of iterative reconstruction technique. DISCUSSION: Carotid arteries: Minimal bilateral carotid siphon calcification without significant stenosis No abnormalities in the A1 or M1 segments. Vertebrobasilar Circulation: Right vertebral artery: Mild calcified plaque without significant stenosis. Left vertebral artery: Mild calcified plaque without significant stenosis. Basilar artery: Patent, no abnormalities. Posterior cerebral arteries: Patent, no abnormalities. Normal Variants: ACom: Patent. PComs: Not visualized. Vertebral arteries: Co-dominant. The major dural venous sinuses are grossly patent. Additional findings: There is mild generalized cerebral volume loss. Mild periventricular white matter hypodensities are likely chronic microvascular ischemic changes. No acute intracranial abnormalities are seen. IMPRESSION: 1. Mild bilateral carotid siphon and intradural vertebral artery calcified plaque without significant stenosis. 2. No other intracranial CTA abnormalities. Signed by: Dr. Bryant Lawrence M.D. on 10/23/2019 2:02 PM
== END ==
LOC: CT 07:56
PROVIDERS: ATTEND Internal Medicine
DX: Z86.79 Personal history of other diseases of the circulatory system (principal)
CPT/HCPCS: 36415; 70496; 82565; 84520; J7050; Q9967

== ENCOUNTER 2021-03-06 16:52 | Emergency (ER) | payer BC, OTHER ==
[~2021-03-06] VITALS: Ht 175.3 cm; Wt 108.9 kg
[~2021-03-06 16:52] MED LIST changes: -IOPAMIDOL 370 MG/ML 200 ML INFUS..BTL INJ ONE; -SODIUM CHLORIDE 0.9% 100 ML ONE
[2021-03-06] MEDS ORDERED: TETANUS/DIPHTHERIA TOX ADULT 0.5 ML SYR IM ONE (17:15)
[2021-03-06] MEDS ORDERED: KEFLEX125 MG/5 M PO (17:18)
[2021-03-06] MEDS ORDERED: TETANUS/DIPHTHERIA TOX ADULT 0.5 ML SYR ONE (17:18)
== END 2021-03-06 17:30 | disposition home or self-care (01) ==
LOC: FSED 17:17
DX: S61.012A Laceration without foreign body of left thumb without damage to nail, initial encounter (principal); W26.0XXA Contact with knife, initial encounter; I10 Essential (primary) hypertension; E11.9 Type 2 diabetes mellitus without complications; Z85.828 Personal history of other malignant neoplasm of skin
CPT/HCPCS: 90471; 90714; 99283